=== PATIENT | male | born 1955 | race Caucasian/White ===

== ENCOUNTER 2019-04-02 23:39 | Inpatient (IN) | payer SELFPAY ==
[~2019-04-02] VITALS: Ht 175.3 cm; Wt 93.0 kg
[2019-04-03 01:27] LABS: BASOPHILS 0.2 % (0-2); EOSINOPHILS 3.9 % (0-7); HEMATOCRIT 39.2 % (42.0-54.0); HEMOGLOBIN 13.9 g/dL (13.5-17.5); IMMATURE GRANULOCYTES 0.5 % (0-5); LYMPHOCYTES 33.4 % (15-50); MCH 30.5 pg (26.0-34.0); MCHC 35.5 g/dL (31.0-37.0); MONOCYTES 7.2 % (2-11); NEUTROPHILS 54.8 % (40-80); PLATELET COUNT 164 10x3/uL (130-400); RBC 4.56 10x6/uL (4.20-6.10); RDW 13.6 % (11.5-14.5); WBC 6.4 10x3/uL (4.8-10.8)
[2019-04-03 01:38] LABS: INR 1.08 (0.85-1.17); PROTIME 13.5 SECONDS (11.6-15.0)
[2019-04-03 01:45] LABS: ALBUMIN 2.2 g/dL (3.4-5.0); ALKALINE PHOSPHATASE 88 U/L (46-116); ALT (SGPT) 22 U/L (10-68); BILIRUBIN - TOTAL 0.45 mg/dL (0.2-1.3); CALC OSMOLALITY 293 mosm/kg (275-300); CALCIUM 9.4 mg/dL (8.5-10.1); CARBON DIOXIDE 23.2 mmol/L (21.0-32.0); CHLORIDE - SERUM 105 mmol/L (98-107); GLUCOSE 388 mg/dL (74-106); POTASSIUM - SERUM 5.5 mmol/L (3.5-5.1); PROTEIN - SERUM 6.5 g/dL (6.4-8.2); SODIUM 138 mmol/L (136-145); UREA NITROGEN 18 mg/dL (7-18)
[2019-04-03 01:53] LABS: CREATININE - SERUM 1.5 mg/dL (0.6-1.3); eGFR NON AFRICAN AMERICAN 50 mL/min (90-120)
[2019-04-03 01:57] LABS: UDS - AMPHET POSITIVE QUAL (NEGATIVE); UDS - BARB NEGATIVE QUAL (NEGATIVE); UDS - BENZO NEGATIVE QUAL (NEGATIVE); UDS - COCAINE NEGATIVE QUAL (NEGATIVE); UDS - OPIATE NEGATIVE QUAL (NEGATIVE); UDS - PCP NEGATIVE QUAL (NEGATIVE); UDS - THC NEGATIVE QUAL (NEGATIVE)
[2019-04-03 02:14] LABS: KETONE - SERUM NEGATIVE (NEGATIVE)
[2019-04-03 02:14] LABS: APPEARANCE CLEAR (CLEAR); BILIRUBIN NEGATIVE (NEGATIVE); COLOR STRAW (YELLOW); GLUCOSE 1000 mg/dL (NEGATIVE); KETONE NEGATIVE (NEGATIVE); NITRITE NEGATIVE (NEGATIVE); PROTEIN NEGATIVE (NEGATIVE); UROBILINOGEN NORMAL (NORMAL)
--- NOTE | 2019-04-03 03:11 | NUR ---
RECIEVED TO ROOM 2133 FROM ER VIA STRETCHER. PT A&O. RESPERATIONS EVEN ON AT 2 LITERS VIA NC. IV TO LEFT HAND SL. LOWER LEFT LEG SWOLLEN WITH 2+ PITTING EDEMA, BRUISES AND IS HOT TO THE TOUCH, UNABLE TO PALPATE OR DOPPLER PEDAL PULSE. RIGHT LEG WNL, PEDAL PULSE DOPPLERED AND MARKED WITH INK. HISTORY AND ADMISSION ASSESSMENT COMPLETE. UNALBE TO TO FINISH MED REC, PT IS UNABLE TO NAME OFF HOME MEDS BUT STATED THAT HIS WILL BRING UP A LIST TODAY, WILL PASS THIS INFORMATION OFF IN REPORT TO DAY SHIFT NURSE. PT CURRENTLY DENIES NEEDS, FRESH ICE WATER GIVEN AT PT REQUEST, CL IN REACH, BED LOW, SR UP X2.
[2019-04-03 03:24] VITALS: BMI 30.3
[2019-04-03 04:00] VITALS: BP 127/62
--- NOTE | 2019-04-03 04:48 | NUR ---
PLACED ON TELEMETRY, 94 SR PER MT.
[2019-04-03 08:44] VITALS: BP 126/68
[2019-04-03 12:27] VITALS: BP 120/82
[2019-04-03 12:39] VITALS: Ht 175.3 cm; Wt 93.0 kg
--- NOTE | 2019-04-03 16:16 | MORECARE ---
CASE MANAGEMENT DISCHARGE SUMMARY PATIENT: LOVE JONES UNIT: [id number] ADM DATE: 04/03/19 AGE: 63 : 53 SEX: M ROOM/BED: D.2134 AUTHOR: DENA SULLIVAN PHYSICIAN: REFERRING PHYSICIAN: NILA MONTAÑO MD DATE OF SERVICE: 04/03/19 Discharge Plan Patient Name: LOVE JONES [facility] [facility] 1955 Planned Disposition: Home Anticipated Discharge Date: Discharge Date: Expected LOS: Initial Reviewer: [email or web address] Initial Review Date: 04/03/2019 Generated: 04/03/19 5:16 pm DCPIA - Discharge Planning Initial Assessment Updated by [email or web address]: Saleem Becerril on 04/03/19 4:14 pm * Is the patient Alert and Oriented? Yes * How many steps to enter\exit or inside your home? * PCP MONIE VYAS, [place] * Pharmacy [facility], [place], [place] * Preadmission Environment Home with Family * ADLs Independent * Equipment None * Other Equipment NO MEDICAL EQUIPMENT PROVIDER PREFERENCE * List name and contact numbers for known caregivers / representatives who currently or will assist patient after discharge: GRACIELA JONES, SPOUSE, * Verbal permission to speak to the caregivers and representatives has been obtained from the patient. N/A * Community resources currently utilized None * Please name any agencies selected above. NONE * Additional services required to return to the preadmission environment? No * Can the patient safely return to the preadmission environment? Yes * Has this patient been hospitalized within the prior 30 days at any hospital? No Patient Name: LOVE JONES Page 78078 at 1616 All edits/amendments must be made on the electronic document DICTATION DATE: 04/03/191615 ESOL INSTRUCTOR: KAYLA 04/03/191615 RPT#: [id number] DC DATE: STATUS: ADM IN [facility] [address] [place] [address] END OF REPORT
--- NOTE | 2019-04-03 16:31 | MORECARE ---
CASE MANAGEMENT DISCHARGE SUMMARY PATIENT: LOVE JONES UNIT: [id number] ADM DATE: 04/03/19 AGE: 63 : 51 SEX: M ROOM/BED: D.5663 AUTHOR: DENA SULLIVAN PHYSICIAN: REFERRING PHYSICIAN: NILA MONTAÑO MD DATE OF SERVICE: 04/03/19 Discharge Plan Patient Name: LOVE JONES Facility: [facility]:[place] : 1955 Planned Disposition: Home Anticipated Discharge Date: Discharge Date: Expected LOS: Initial Reviewer: [email or web address] Initial Review Date: 04/03/2019 Generated: 04/03/19 5:30 pm Comments DCP- Discharge Planning Updated by [email or web address]: Saleem Becerril on 04/03/19 3:[address] Patient Name: LOVE JONES Admission Status: ER Accout number: [id number] Admission Date: 04-03-2019 : 1955 Admission Diagnosis: Attending: HOLLAND MONTAÑO Current LOS: 1 Anticipated DC Date: Planned Disposition: Home Primary Insurance: UNINSURED DISCOUNT PLAN Discharge Planning Comments: CM RECEIVED ORDER FOR PT CANNOT AFFORD MEDICATIONS. CM MET WITH PT IN ROOM TO DISCUSS DISCHARGE PLANNING AND NEEDS. PT REPORTS LIVING AT HOME INDEPENDENTLY WITH HIS . PT REPORTS HAVING BEEN RELEASED FROM ASSISTED ON January AFTER 24 MONTHS DUE TO "SLINGING DRUGS". PT HAS NO MEDICAL EQUIPMENT AND NO OUTSIDE SERVICES ASSISTING IN THE HOME. CM DISCUSSED AVAILABILITY OF HOME HEALTH, REHAB SERVICES AND MEDICAL EQUIPMENT. PT DENIES DISCHARGE NEEDS, REPORTS HIS WILL PICK HIM UP FOR DISCHARGE HOME. CM DISCUSSED INABILITY TO AFFORD DRUGS. PT STATES HE CAN AFFORD HIS MEDICATIONS. 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 PT RECEIVED HIS CHECK AFTER RELEASE FROM ASSISTED AND OPENED UP A BANK ACCOUNT. PT HAD A PREVIOUS ACCOUNT THAT WAS OVERDRAFTED AND THE BACK HELD HIS MONEY. THEY HAVE SINCE RESOLVED THE ISSUE AND HAVE MAILED HIM HIS CHECK BUT HE WILL HAVE TO OPEN ANOTHER BANK ACCOUNT. PT REPORTS HE IS RECEIVING HIS NEXT DISABILITY CHECK NEXT WEEK. PT REPORTS MOST OF HIS MEDICATIONS ARE $4 AND METFORMIN IS THE MOST EXPENSIVE AT $60. PT REPORTS HAVING MEDICARE AND INSURANCE TO ASSIST IN GETTING HIS MEDICATIONS FROM HIS PRIMARY CARE DOCTOR, DR. FARIAS, IN [place], [place]. PT REPORTS BEING ON PAROLE AND HE HAS NOT CONTACTED HIS DATA STORAGE SPECIALIST TO LET HIM KNOW THAT HE IS IN THE HOSPITAL; PT IS NOT SURE IF HE HAS MISSED HIS TELEPHONE APPPOINTMENT TO CALL IN AND DOES NOT KNOW IF HE HAS RESTRICTIONS ON OUT OF STATE TRAVEL. CM ADVISED PT TO CONTACT HIS DATA STORAGE SPECIALIST TODAY AND TO MAKE SURE HE SHOWS HIS HOSPITAL DISCHARGE PAPERS TO HIS DATA STORAGE SPECIALIST AFTER HOSPTIAL DISCHARGE. CM DISCUSSED DRUG USE, PT DENIES ADDICTION TO DRUGS AND DENIES NEED FOR RESOURCE INFORMATION. CM ENCOURAGED PT TO INFORM HIS DATA STORAGE SPECIALIST OF ANY AND ALL USE OF ILLICIT DRUGS UPON HIS NEXT CALL TO [place] OFFICE AND TO REQUEST ASSISTANCE OF DATA STORAGE SPECIALIST FOR RECOVERY SUPPORT PROGRAMS IN PT'S HOME AREA, IF NEEDED. PT REPORTS UNDERSTANDING, DENIES DISCHARGE NEEDS. PT PLANS TO DISCHARGE HOME WITH , REPORTS ABILITY TO AFFORD MEDICATIONS, REPORTS HAVING HEALTH AND PRESCRIPTION DRUG COVERAGES. CM TO FOLLOW AND ASSIST IF NEEDED. Acute Specialist: Saleem Becerril DCA - Discharge Planning Initial Assessment Updated by [email or web address]: Saleem Becerril on 04/03/19 4:14 pm * Is the patient Alert and Oriented? Yes * How many steps to enter\\exit or inside your home? * PCP [place]ELMO [place] * Pharmacy [facility], [place], [place] * Preadmission Environment Home with Family * ADLs Independent * Equipment None * Other Equipment NO MEDICAL EQUIPMENT PROVIDER PREFERENCE * List name and contact numbers for known caregivers / representatives who currently or will assist patient after discharge: GRACIELA JONES, SPOUSE, * Verbal permission to speak to the caregivers and representatives has been obtained from the patient. N/A * Community resources currently utilized None * Please name any agencies selected above. NONE * Additional services required to return to the preadmission environment? No * Can the patient safely return to the preadmission environment? Yes * Has this patient been hospitalized within the prior 30 days at any hospital? No Last DP export: 04/03/19 3:16 p Patient Name: LOVE JONES Page [phone] at 1631 All edits/amendments must be made on the electronic document DICTATION DATE: 04/03/19 1630 TRIM SETTER: KAYLA 04/03/19 1630 RPT#: [id number] [place] DATE: STATUS: ADM IN [facility] [address] [place] [address] END OF REPORT
--- NOTE | 2019-04-03 19:15 | NUR ---
PT RESTING IN BED. LEFT THUMB IV UNHOOKED FROM NS AND IV WRAPPED WITH A GLOVE FOR PT TO GET INTO SHOWER. PT IS AAO. LEFT LEG HAS SWELLING NOTED. PT STATES SWELLING HAS DECREASED. PT HAS NO S/S OF DISTRESS. BED LOW AND CALL LIGHT IN REACH. WILL CPOC
[2019-04-03 20:00] VITALS: BP 131/80
--- NOTE | 2019-04-03 21:16 | NUR ---
PT EATING GRAM CRACKERS PNT BUTTER AND JELLO. SIPPING ON WATER. FSBS IS 264 10 UNITS OF HUMALOG GIVEN ORDERED. WILL CPOC
[2019-04-04] VITALS: BP 109/50
--- NOTE | 2019-04-04 03:22 | NUR ---
PT CALLED COMPLAINING OF PAIN. NO PAIN MEDICATION AVALIBLE. PAGED LUIS MIGUEL LAMAR
--- NOTE | 2019-04-04 03:24 | NUR ---
OBTAINED AN ORDER FOR 1 MG OF MORPHINE IV Q6H PRN FOR PAIN. READ BACK ORDER TO VERIFY.
--- NOTE | 2019-04-04 03:49 | NUR ---
LOVENOX GIVEN. PT EDUCATED ON LOVENOX AND VERBALIZED UNDERSTANDING. LEFT THUMB IV NOT FLUSHING. REDRESSED IV AND IT IS NOW PATENT. NS INFUSING AND MORPHINE GIVEN. PT DENIES ANY OTHER NEEDS. PT VERBALIZED UNDERSTANDING TO CALL FOR ASSIST WHEN AMBULATING DUE TO MORPHINE. ALARM ON AND ACTIVE. WILL CPOC
[2019-04-04 04:00] VITALS: BP 128/73
--- NOTE | 2019-04-04 06:27 | NUR ---
PT ATE CANDY THIS MORNING. FSBS IS 409 TREATED WITH 20 UNITS ORDERED.
[2019-04-04 07:04] LABS: BASOPHILS 0.3 % (0-2); EOSINOPHILS 2.8 % (0-7); HEMATOCRIT 37.8 % (42.0-54.0); IMMATURE GRANULOCYTES 0.3 % (0-5); LYMPHOCYTES 32.7 % (15-50); MCH 30.6 pg (26.0-34.0); MCHC 34.4 g/dL (31.0-37.0); MEAN PLATELET VOLUME 9.4 fL (7.4-10.4); MONOCYTES 7.2 % (2-11); NEUTROPHILS 56.7 % (40-80); RBC 4.25 10x6/uL (4.20-6.10); RDW 13.6 % (11.5-14.5); WBC 5.7 10x3/uL (4.8-10.8)
--- NOTE | 2019-04-04 07:16 | NUR ---
INITIAL ROUNDING, WHITE BOARD UPDATED. PATIENT IS SLEEPING, SNORING, ON HIS RIGHT SIDE, LIGHTS OFF, CALL LIGHT IN REACH.
[2019-04-04 07:20] LABS: MCV 88.9 fL (80.0-100.0); PLATELET COUNT 206 10x3/uL (130-400)
[2019-04-04 07:27] LABS: ALBUMIN 2.2 g/dL (3.4-5.0); BILIRUBIN - TOTAL 0.38 mg/dL (0.2-1.3); CALCIUM 8.3 mg/dL (8.5-10.1); CARBON DIOXIDE 25.7 mmol/L (21.0-32.0); CREATININE - SERUM 1.3 mg/dL (0.6-1.3); PHOSPHOROUS 3.4 mg/dL (2.5-4.9); PROTEIN - SERUM 5.8 g/dL (6.4-8.2)
[2019-04-04 07:44] LABS: POTASSIUM - SERUM 3.7 mmol/L (3.5-5.1)
[2019-04-04 11:40] VITALS: BP 133/64
--- NOTE | 2019-04-04 12:50 | NUR ---
THE PATIENT REQUESTED PAIN MEDICATION AFTER BEING WOKE FOR THE PRN MAG. THE PATIENT WAS SLEEPING/SNORING WHEN THE MEDICATION WAS TO BE GIVEN, DID NOT WAKE THE PATIENT TO ADMINISTER THE PAIN MED. WILL CONT TO MONITOR
--- NOTE | 2019-04-04 19:15 | NUR ---
PT LAYING ON RIGHT SIDE WITH EYES CLOSED. RESP EVEN AND UNLABORED. LEFT THUMB WITH NS INFUSING ORDERED. PT HAS NO S/S OF DISTRESS. BED LOW AND CALL LIGHT IN REACH. NAME AND DATE PLACED ON BOARD. WILL CPOC
[2019-04-04 20:00] VITALS: BP 128/76
--- NOTE | 2019-04-04 21:04 | NUR ---
NIGHT MEDICATIONS GIVEN, ELIQUIS EDUCATION GIVEN. PT VERBALIZED UNDERSTANDING. FSBS IS 238 8 UNITS GIVEN. PT CALLED SO NURSE COULD ASK FOR PHYSICAL COPY OF MED REC OR VERBAL INFO FOR MED REC. STATES WILL BRING TOMORROW. PT LEFT THUMB WITH NS INFUSING. PT GIVEN MAG PER PROTOCOL. WILL PLACE ORDER FOR REDRAW. NO OTHER NEEDS. SNACK OFFERED. WILL CPOC
--- NOTE | 2019-04-04 21:49 | NUR ---
PT COMPLAINS OF PAIN. MORPHINE GIVEN ORDERED. PT DENIES ANY OTHER NEEDS. WILL CPOC
--- NOTE | 2019-04-05 01:17 | NUR ---
PT LAYING ON RIGHT SIDE. EYES CLOSED. RESP EVEN AND UNLABORED. 2L O2 NC. NO S/S OF DISTRESS. BED LOW AND CALL LIGHT IN REACH. EMPTIED 125CC OF YELLOW URINE FROM URINAL. WILL CPOC
--- NOTE | 2019-04-05 03:20 | NUR ---
PT MAG IS 1.1 TREATING PER ELECT. PROTOCOL. PT VERBALIZED UNDERSTANDING. O2 92% PT PLACED 2L ON AND DENIES ANY NEEDS. WILL CPOC
[2019-04-05 04:00] VITALS: BP 152/95
--- NOTE | 2019-04-05 04:04 | NUR ---
SECOND BAG STARTED FOR MAG REPLACEMENT. WILL CONTINUE TO FOLLOW ELECT. PROTOCOL
--- NOTE | 2019-04-05 05:12 | NUR ---
3RD BAG OF MAG STARTED PER PROTOCOL. LAB CAME BY ROOM AND NURSE ASKED IF ALL MORNING LABS CAN BE DRAWN AFTER BREAKFAST SINCE PT IS A HARD STICK AND NURSE WILL BE PUTTING IN A REDRAW FOR [phone] CIRA FROM LAB IN AGREEMENT AND PUT A NOTE ON LABELS. WILL PASS IN REPORT.
--- NOTE | 2019-04-05 05:47 | NUR ---
FOURTH BAG OF MAG STARTED PER PROTOCOL. MORNING PROTONIX GIVEN. PT HAS NO S/S OF DISTRESS. BED LOW AND CALL LIGHT IN REACH. WILL CPOC
--- NOTE | 2019-04-05 05:57 | NUR ---
PT FSBS IS 236 8 UNITS GIVEN ORDERED. PT DENIES ANY NEEDS. WILL CPOC
--- NOTE | 2019-04-05 06:02 | NUR ---
PT HAS A SNACK AVALIBLE POST 8 UNIT INSULIN
--- NOTE | 2019-04-05 07:14 | NUR ---
ROUNDING DONE WITH PATIENT LAYING ON RIGHT SIDE, VOICING NO NEEDS BUT BEING TIRED. ON EP, LABS WERE COVERED LAST SHIFT WITH RE-DRAW OF MAG AT 0800. LEFT THUMB PIV SEEN WITH NS INFUSING AT 20 CC/HR. ON 2L PER NC. ON HEART MONITOR SHOWING SR, HR 83.
[2019-04-05 08:37] VITALS: BP 160/87
[2019-04-05 09:48] LABS: BASOPHILS 0.2 % (0-2); EOSINOPHILS 2.9 % (0-7); HEMATOCRIT 37.4 % (42.0-54.0); HEMOGLOBIN 12.8 g/dL (13.5-17.5); IMMATURE GRANULOCYTES 0.5 % (0-5); LYMPHOCYTES 18.9 % (15-50); MCH 30.4 pg (26.0-34.0); MCHC 34.2 g/dL (31.0-37.0); MCV 88.8 fL (80.0-100.0); MEAN PLATELET VOLUME 9.1 fL (7.4-10.4); MONOCYTES 6.7 % (2-11); NEUTROPHILS 70.8 % (40-80); PLATELET COUNT 205 10x3/uL (130-400); RBC 4.21 10x6/uL (4.20-6.10); RDW 13.6 % (11.5-14.5); WBC 5.8 10x3/uL (4.8-10.8)
[2019-04-05 10:04] LABS: ALBUMIN 2.1 g/dL (3.4-5.0); ANION GAP 11.2 mmol/L (8-16); BILIRUBIN - TOTAL 0.51 mg/dL (0.2-1.3); CALCIUM 8.2 mg/dL (8.5-10.1); CARBON DIOXIDE 24.3 mmol/L (21.0-32.0); CREATININE - SERUM 1.3 mg/dL (0.6-1.3); MAGNESIUM - SERUM 1.9 mg/dL (1.8-2.4); PHOSPHOROUS 2.5 mg/dL (2.5-4.9); POTASSIUM - SERUM 3.5 mmol/L (3.5-5.1)
--- NOTE | 2019-04-05 10:10 | NUR ---
EP RESULTS IN WITH K+ 3.5, MAG 1.9, AND PHOS2.5 WILL COVER NEEDED PER ORAL SUPPLEMENTS.
--- NOTE | 2019-04-05 10:15 | NUR ---
ORAL POTASSIUM GIVEN.
--- NOTE | 2019-04-05 10:32 | EC ---
PATIENT:LOVE JONES DATE OF SERVICE: 04/03/19 SEX: M MEDICAL RECORD: [id number] DATE OF : [birth year] LOCATION:D.M2 D.213 AGE OF PATIENT: 63 ADMISSION DATE: 04/03/19 REFERRING PHYSICIAN: INTERPRETING PHYSICIAN: SHAGGY HILL MD ECHOCARDIOGRAM REPORT ECHO CHARGES 4 ECHO COMPLETE Date: 04/04/19 CLINICAL DIAGNOSIS: CHF/BILATERAL PE'S,IV DRUG USE ECHOCARDIOGRAPHIC MEASUREMENTS (adult normal given) AC root (d.<3.7cm) 3.5 cm LV Septum d (<1.2 cm> 1.5 cm Valve Excursion 1.3 cm LV Septum (systole) 1.7 cm Left Atria (s.<4.0cm> 4.2 cm LVPW d(<1.2cm) 1.6 cm RV (d.<2.3cm) 3.3 cm LVPW (sytole) 1.9 cm LV diastole(<5.6CM) 4.5 cm MV E-F(>70mm/sec) cm LV systole 3.2 cm LVOT Diameter 2.3 cm MV exc.(>10mm) 2.3 cm Est.ejection fraction (50-75%) % DOPPLER: LVIT cm/sec A 107 cm/sec E 78.0 cm/sec LA cm/sec RVSP 37 mmHg LVOT 96 cm/sec AOP1/2T m/s Asc. Ao 147 cm/sec RVOT 71 cm/sec RA cm/sec PA 111 cm/sec AV Gradient Peak 8.66 mmHg AV Mean 4.48 mmHg AV Area 2.7 cm MV Gradient Peak 6.19 mmHg MV Mean 2.53 mmHg MV Area cm COMMENTS: Surgical First Assistant: 2 SAHIL HANSON Tea Tree Farmer: 3 Dr. Nolan TAPE# PACS Pericardial Effusion N DATE OF SERVICE: Adequate 2-D echo, color-flow and spectral Doppler, and M-mode. LVH is present. LV internal dimensions are normal. Wall motion is normal. EF is greater than or equal to 55%. Aortic valve is tricuspid. No evidence of stenosis by Doppler interrogation. Left atrium is mildly dilated at 4.2 cm. Mitral valve shows no prolapse. Trace MR. Right-sided chambers are grossly normal. Trace TR. No evidence of vegetation in all 4 cardiac valves. ECHOCARDIOGRAM REPORT [id number] LOVE JONES TRANSINT:[id number] Voice Confirmation ID: [id number] DOCUMENT ID: [id number] SHAGGY HILL MD at 1032 CC: [id number] DICTATION DATE: 04/04/19 1349 FARE COLLECTOR: 04/04/19 1634 ADM IN [facility] [address] [place] [address]
--- NOTE | 2019-04-05 11:31 | MORECARE ---
CASE MANAGEMENT DISCHARGE SUMMARY PATIENT: LOVE JONES UNIT: [id number] ADM DATE: 04/03/19 AGE: 63 : 51 SEX: M ROOM/BED: D.9445 AUTHOR: DENA SULLIVAN PHYSICIAN: REFERRING PHYSICIAN: NILA MONTAÑO MD DATE OF SERVICE: 04/05/19 Discharge Plan Patient Name: LOVE JONES Facility: [facility]:[place] : 1955 Planned Disposition: Home Anticipated Discharge Date: 04/05/19 Discharge Date: Expected LOS: 2 Initial Reviewer: [email or web address] Initial Review Date: 04/03/2019 Generated: 04/05/19 12:31 pm Comments DCP- Discharge Planning Updated by [email or web address]: Saleem Becerril on 04/05/19 10:[address] Patient Name: LOVE JONES Encounter No: [id number] : 1955 Primary Insurance: UNINSURED DISCOUNT PLAN Anticipated DC Date: 04-05-2019 Planned Disposition: Home DCP follow-up note: CM REVIEWED CHART, PT STARTED ON ELIQUIS. CM MET WITH PT AND PROVIDED PT WITH ELIQUIS 30 DAY FREE PRESCRIPTION CARD AND $10 COPAY CARD. PT DENIES FURHTER DISCHARGE NEEDS, REPORTS PLAN FOR HIS TO PICK HIM UP AT DISCHARGE. CM TO CONTINUE TO FOLLOW AND ASSIST IF NEEDED. Saleem Becerril CASE MANAGEMENT DCP- Discharge Planning Updated by [email or web address]: Saleem Becerril on 04/03/19 3:[address] Patient Name: LOVE JONES Admission Status: ER Accout number: [id number] Admission Date: 04-03-2019 : 1955 Admission Diagnosis: Attending: HOLLAND MONTAÑO Current LOS: 1 Anticipated DC Date: Planned Disposition: Home Primary Insurance: UNINSURED DISCOUNT PLAN Discharge Planning Comments: CM RECEIVED ORDER FOR PT CANNOT AFFORD MEDICATIONS. CM MET WITH PT IN ROOM TO DISCUSS DISCHARGE PLANNING AND NEEDS. PT REPORTS LIVING AT HOME INDEPENDENTLY WITH HIS . PT REPORTS HAVING BEEN RELEASED FROM NURSING HOME ON January AFTER 24 MONTHS DUE TO "SLINGING DRUGS". PT HAS NO MEDICAL EQUIPMENT AND NO OUTSIDE SERVICES ASSISTING IN THE HOME. CM DISCUSSED AVAILABILITY OF HOME HEALTH, REHAB SERVICES AND MEDICAL EQUIPMENT. PT DENIES DISCHARGE NEEDS, REPORTS HIS WILL PICK HIM UP FOR DISCHARGE HOME. CM DISCUSSED INABILITY TO AFFORD DRUGS. PT STATES HE CAN AFFORD HIS MEDICATIONS. 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 PT RECEIVED HIS CHECK AFTER RELEASE FROM NURSING HOME AND OPENED UP A BANK ACCOUNT. PT HAD A PREVIOUS ACCOUNT THAT WAS OVERDRAFTED AND THE BACK HELD HIS MONEY. THEY HAVE SINCE RESOLVED THE ISSUE AND HAVE MAILED HIM HIS CHECK BUT HE WILL HAVE TO OPEN ANOTHER BANK ACCOUNT. PT REPORTS HE IS RECEIVING HIS NEXT DISABILITY CHECK NEXT WEEK. PT REPORTS MOST OF HIS MEDICATIONS ARE $4 AND METFORMIN IS THE MOST EXPENSIVE AT $60. PT REPORTS HAVING MEDICARE AND INSURANCE TO ASSIST IN GETTING HIS MEDICATIONS FROM HIS PRIMARY CARE DOCTOR, DR. FARIAS, IN [place], [place]. PT REPORTS BEING ON PAROLE AND HE HAS NOT CONTACTED HIS CADMIUM LIQUOR MAKER TO LET HIM KNOW THAT HE IS IN THE HOSPITAL; PT IS NOT SURE IF HE HAS MISSED HIS TELEPHONE APPPOINTMENT TO CALL IN AND DOES NOT KNOW IF HE HAS RESTRICTIONS ON OUT OF STATE TRAVEL. CM ADVISED PT TO CONTACT HIS CADMIUM LIQUOR MAKER TODAY AND TO MAKE SURE HE SHOWS HIS HOSPITAL DISCHARGE PAPERS TO HIS CADMIUM LIQUOR MAKER AFTER HOSPTIAL DISCHARGE. CM DISCUSSED DRUG USE, PT DENIES ADDICTION TO DRUGS AND DENIES NEED FOR RESOURCE INFORMATION. CM ENCOURAGED PT TO INFORM HIS CADMIUM LIQUOR MAKER OF ANY AND ALL USE OF ILLICIT DRUGS UPON HIS NEXT CALL TO [place] OFFICE AND TO REQUEST ASSISTANCE OF CADMIUM LIQUOR MAKER FOR RECOVERY SUPPORT PROGRAMS IN PT'S HOME AREA, IF NEEDED. PT REPORTS UNDERSTANDING, DENIES DISCHARGE NEEDS. PT PLANS TO DISCHARGE HOME WITH , REPORTS ABILITY TO AFFORD MEDICATIONS, REPORTS HAVING HEALTH AND PRESCRIPTION DRUG COVERAGES. CM TO FOLLOW AND ASSIST IF NEEDED. Nurse Aide: Saleem Becerril DCA - Discharge Planning Initial Assessment Updated by [email or web address]: Saleem Becerril on 04/03/19 4:14 pm * Is the patient Alert and Oriented? Yes * How many steps to enter\\exit or inside your home? * PCP DR. FARIAS, MONIE, [place] * Pharmacy [facility], [place], [place] * Preadmission Environment Home with Family * ADLs Independent * Equipment None * Other Equipment NO MEDICAL EQUIPMENT PROVIDER PREFERENCE * List name and contact numbers for known caregivers / representatives who currently or will assist patient after discharge: GRACIELA JONES, SPOUSE, * Verbal permission to speak to the caregivers and representatives has been obtained from the patient. N/A * Community resources currently utilized None * Please name any agencies selected above. NONE * Additional services required to return to the preadmission environment? No * Can the patient safely return to the preadmission environment? Yes * Has this patient been hospitalized within the prior 30 days at any hospital? No Last DP export: 04/03/19 3:31 p Patient Name: LOVE JONES Page [id number] at 1131 All edits/amendments must be made on the electronic document DICTATION DATE: 04/05/19 1131 TOLL MECHANIC: DM 04/05/19 1131 RPT#: [id number] [place] DATE: STATUS: ADM IN [facility] [address] [place] [address] END OF REPORT
--- NOTE | 2019-04-05 12:18 | NUR ---
FSBS 342, COVERED WITH 12 U HUMALOG TO RIGHT ARM. PATIENT STATES THAT HE JUST CAME FROM RESTROOM FROM HAVING A BOWEL MOVEMENT.
[2019-04-05 12:30] VITALS: BP 137/96
--- NOTE | 2019-04-05 13:32 | NUR ---
DR ISLASMN HERE WITH NEW ORDERS.
--- NOTE | 2019-04-05 15:35 | NUR ---
RESTING ON RIGHT SIDE WITH EYES CLOSED, RESP ARE EVEN. APPEARS PAINFREE AT THIS PRESENT TIME.
[2019-04-05 16:38] VITALS: BP 150/75
--- NOTE | 2019-04-05 17:04 | MORECARE ---
CASE MANAGEMENT DISCHARGE SUMMARY PATIENT: LOVE JONES UNIT: [id number] ADM DATE: 04/03/19 AGE: 63 : 51 SEX: M ROOM/BED: D.2134 AUTHOR: DENA SULLIVAN PHYSICIAN: REFERRING PHYSICIAN: NILA MONTAÑO MD DATE OF SERVICE: 04/05/19 Discharge Plan Patient Name: LOVE JONES Facility: [facility]:[place] : 1955 Planned Disposition: Home Anticipated Discharge Date: 04/05/19 Discharge Date: Expected LOS: 2 Initial Reviewer: [email or web address] Initial Review Date: 04/03/2019 Generated: 04/05/19 6:03 pm Comments DCP- Discharge Planning Updated by [email or web address]: Saleem Becerril on 04/05/19 3:[address] Patient Name: LOVE JONES Encounter No: [id number] : 1955 Primary Insurance: UNINSURED DISCOUNT PLAN Anticipated DC Date: 04-05-2019 Planned Disposition: Home DCP follow-up note: CM RECEIVED ORDER FOR TRANSPORTATION. CM SPOKE TO CM PERSONNEL REPRESENTATIVE, DISCUSSED SITUATION. [employer] TRANSPORT PAID FOR BY CASE MANAGEMENT IS NOT FEASIBLE. CM SPOKE TO PT IN ROOM REGARDING DISCHARGE PLAN AND TRANSPORTATION. PT REPORTS HE HAS CALLED HIS AND DAUGHTER, THEY SHOULD BE ON THE WAY IN THE MORNING TO PICK HIM UP; PT REPORTS HIS CAR GETS 26 MILES PER [place] AND THEY CAN COME PICK HIM UP AND GET BACK HOME ON ONE TANK OF GAS. PT HAS THE ELIQUIS ASSISTANCE CARDS AND DENIES FURTHER DISCHARGE NEEDS. PT'S SPOUSE TO CORPORATE MEETING PLANNER PT FOR DISCHARGE HOME TOMORROW, 04-06-19. Saleem Becerril CASE MANAGEMENT DCP- Discharge Planning Updated by [id number]: Saleem Becerril on 04/05/19 10:[address] Patient Name: LOVE JONES Encounter No: [id number] : 1955 Primary Insurance: UNINSURED DISCOUNT PLAN Anticipated DC Date: 04-05-2019 Planned Disposition: Home DCP follow-up note: CM REVIEWED CHART, PT STARTED ON ELIQUIS. CM MET WITH PT AND PROVIDED PT WITH ELIQUIS 30 DAY FREE PRESCRIPTION CARD AND $10 COPAY CARD. PT DENIES FURHTER DISCHARGE NEEDS, REPORTS PLAN FOR HIS TO PICK HIM UP AT DISCHARGE. CM TO CONTINUE TO FOLLOW AND ASSIST IF NEEDED. Saleem Becerril, CASE MANAGEMENT DCP- Discharge Planning Updated by [id number]: Saleem Michelwell on 04/03/19 3:[address] Patient Name: LOVE JONES Admission Status: ER Accout number: [id number] Admission Date: 04-03-2019 : 1955 Admission Diagnosis: Attending: HOLLAND MONTAÑO Current LOS: 1 Anticipated DC Date: Planned Disposition: Home Primary Insurance: UNINSURED DISCOUNT PLAN Discharge Planning Comments: CM RECEIVED ORDER FOR PT CANNOT AFFORD MEDICATIONS. CM MET WITH PT IN ROOM TO DISCUSS DISCHARGE PLANNING AND NEEDS. PT REPORTS LIVING AT HOME INDEPENDENTLY WITH HIS . PT REPORTS HAVING BEEN RELEASED FROM [facility]ARE [facility] ON January AFTER 24 MONTHS DUE TO "SLINGING DRUGS". PT HAS NO MEDICAL EQUIPMENT AND NO OUTSIDE SERVICES ASSISTING IN THE HOME. CM DISCUSSED AVAILABILITY OF HOME HEALTH, REHAB SERVICES AND MEDICAL EQUIPMENT. PT DENIES DISCHARGE NEEDS, REPORTS HIS WILL PICK HIM UP FOR DISCHARGE HOME. CM DISCUSSED INABILITY TO AFFORD DRUGS. PT STATES HE CAN AFFORD HIS MEDICATIONS. PT STATES HE [place]. PT RECEIVED HIS CHECK AFTER RELEASE FROM [facility] AND OPENED UP A BANK ACCOUNT. PT HAD A PREVIOUS ACCOUNT THAT WAS OVERDRAFTED AND THE BACK HELD HIS MONEY. THEY HAVE SINCE RESOLVED THE ISSUE AND HAVE MAILED HIM HIS CHECK BUT HE WILL HAVE TO OPEN ANOTHER BANK ACCOUNT. PT REPORTS HE IS RECEIVING HIS NEXT DISABILITY CHECK NEXT WEEK. PT REPORTS MOST OF HIS MEDICATIONS ARE $4 AND METFORMIN IS THE MOST EXPENSIVE AT $60. PT REPORTS HAVING MEDICARE AND INSURANCE TO ASSIST IN GETTING HIS MEDICATIONS FROM HIS PRIMARY CARE DOCTOR, DR. FARIAS, IN [place], [place]. PT REPORTS BEING ON [place] AND HE HAS NOT CONTACTED HIS NURSING ASSOCIATE TO LET HIM KNOW THAT HE IS IN THE HOSPITAL; PT IS NOT SURE IF HE HAS MISSED HIS TELEPHONE APPPOINTMENT TO CALL IN AND DOES NOT KNOW IF HE HAS RESTRICTIONS ON OUT OF STATE TRAVEL. CM ADVISED PT TO CONTACT HIS NURSING ASSOCIATE TODAY AND TO MAKE SURE HE SHOWS HIS HOSPITAL DISCHARGE PAPERS TO HIS NURSING ASSOCIATE AFTER HOSPTIAL DISCHARGE. CM DISCUSSED DRUG USE, PT DENIES ADDICTION TO DRUGS AND DENIES NEED FOR RESOURCE INFORMATION. CM ENCOURAGED PT TO INFORM HIS NURSING ASSOCIATE OF ANY AND ALL USE OF ILLICIT DRUGS UPON HIS NEXT CALL TO [place] OFFICE AND TO REQUEST ASSISTANCE OF NURSING ASSOCIATE FOR RECOVERY SUPPORT PROGRAMS IN PT'S HOME AREA, IF NEEDED. PT REPORTS UNDERSTANDING, DENIES DISCHARGE NEEDS. PT PLANS TO DISCHARGE HOME WITH , REPORTS ABILITY TO AFFORD MEDICATIONS, REPORTS HAVING HEALTH AND PRESCRIPTION DRUG COVERAGES. CM TO FOLLOW AND ASSIST IF NEEDED. Shop Superintendent: Saleem Becerril DCPIA - Discharge Planning Initial Assessment Updated by [id number]: Saleem Becerril on 04/03/19 4:14 pm * Is the patient Alert and Oriented? Yes * How many steps to enter\\exit or inside your home? * PCP [facility], [place] * Pharmacy [facility], [place], [place] * Preadmission Environment Home with Family * ADLs Independent * Equipment None * Other Equipment NO MEDICAL EQUIPMENT PROVIDER PREFERENCE * List name and contact numbers for known caregivers / representatives who currently or will assist patient after discharge: GRACIELA JONES, SPOUSE, * Verbal permission to speak to the caregivers and representatives has been obtained from the patient. N/A * Community resources currently utilized None * Please name any agencies selected above. NONE * Additional services required to return to the preadmission environment? No * Can the patient safely return to the preadmission environment? Yes * Has this patient been hospitalized within the prior 30 days at any hospital? No Last DP export: 04/05/19 10:31 a Patient Name: LOVE JONES Page 08954 at 1704 All edits/amendments must be made on the electronic document DICTATION DATE: 04/05/191702 BEADER TENDER: KAYLA 04/05/191702 RPT#: [id number] MI DATE: STATUS: ADM IN [facility] [address] [place] [address] END OF REPORT
--- NOTE | 2019-04-05 19:44 | NUR ---
EVENING ROUNDS COMPLETED. REPORT RECEIVED. PT SITTING UP IN BED WITH EYES OPEN. RR EVEN AND UNLABORED. BED IN LOW POSITION. NO S/S OF DISTRESS NOTED. INTRODUCED SELF TO PT. EMPTIED 200 MLS LIGHT YELLOW OUTPUT FROM URINAL. PT DENIUES FURTHER NEEDS AT THIS TIME. CALL LIGHT IN REACH. WILL CTM.
[2019-04-05 20:00] VITALS: BP 123/77
--- NOTE | 2019-04-05 21:08 | NUR ---
275 BLOOD SUGAR TREATED ORDERED PER SLIDING SCALE. ADMINISTERED ORDERED ANALGESIC FOR PT COMPLAINTS OF PAIN IN LEFT FOOT. PT STATES PAIN OF A 7 ON A SCALE OF 0-10.
[2019-04-06] VITALS: BP 163/69
--- NOTE | 2019-04-06 02:21 | NUR ---
ADMINISTERED ORDERED ANALGESIC FOR PT COMPLAINTS OF PAIN IN LEFT LOWER EXTREMITY, PT STATES PAIN OF A 7 ON A SCALE OF 0-10.
[2019-04-06 04:00] VITALS: BP 145/92
--- NOTE | 2019-04-06 04:34 | NUR ---
I have reviewed this patient and I concur with the Shift Assessment completed by the Licensed Practical Nurse today this shift.
[2019-04-06 05:15] LABS: BASOPHILS 0.3 % (0-2); HEMATOCRIT 39.2 % (42.0-54.0); HEMOGLOBIN 13.2 g/dL (13.5-17.5); IMMATURE GRANULOCYTES 0.7 % (0-5); LYMPHOCYTES 24.6 % (15-50); MCH 30.3 pg (26.0-34.0); MCHC 33.7 g/dL (31.0-37.0); MCV 90.1 fL (80.0-100.0); MEAN PLATELET VOLUME 9.6 fL (7.4-10.4); MONOCYTES 8.5 % (2-11); NEUTROPHILS 61.9 % (40-80); PLATELET COUNT 218 10x3/uL (130-400); RBC 4.35 10x6/uL (4.20-6.10); RDW 13.4 % (11.5-14.5)
[2019-04-06 05:30] LABS: ALBUMIN 2.2 g/dL (3.4-5.0); ANION GAP 12.1 mmol/L (8-16); BILIRUBIN - TOTAL 0.53 mg/dL (0.2-1.3); CALCIUM 8.3 mg/dL (8.5-10.1); CARBON DIOXIDE 25.1 mmol/L (21.0-32.0); CREATININE - SERUM 1.1 mg/dL (0.6-1.3); POTASSIUM - SERUM 4.2 mmol/L (3.5-5.1)
--- NOTE | 2019-04-06 05:33 | NUR ---
MORNING MEDICATION ADMINISTERED WITHOUT ISSUE. PT RESTING COMFORTABLY IN BED WITH EYES OPEN, RR EVEN AND UNLABORED. NO S/S OF DISTRESS NOTED. CALL LIGHT IN REACH. 81 NORMAL SINUS ON TELEMETRY. WILL CTM.
[2019-04-06 05:43] LABS: MAGNESIUM - SERUM 1.3 mg/dL (1.8-2.4)
--- NOTE | 2019-04-06 05:59 | NUR ---
1.3 SERUM MAGNESIUM TREATED PER ELECTROLYTE REPLACEMENT PROTOCOL. 167 BLOOD SUGAR TREATED ORDERED PER SLIDING SCALE.
--- NOTE | 2019-04-06 07:13 | NUR ---
BEDSIDE SHIFT REPORT COMPLETE, WHITE BOARD UPDATED, THE PATIENT IS SLEEPING/SNORING ON HIS RIGHT SIDE, LIGHTS OFF, CALL LIGHT IN REACH. DID NOT WAKE DURING ROUNDING.
[2019-04-06 08:34] VITALS: BP 132/82
--- NOTE | 2019-04-06 08:46 | NUR ---
CALLED [phone] AND SPOKE WITH MARIUSZ TREVIZO. HERIBERTO ATKINSON. REPORTED TO HER THAT THE PATIENT HAS BEEN TREATED, PER PROTOCOL, WITH 400 MG (1ST OF 4) PO AND WAS DUE THE SECOND DOSE AT 1000. JOSELINE GAVE VERBAL ORDER TO STOP THE PO AND CHECK THE MAG LEVEL AFTER THE 1ST BAG OF MAG IS INFUSED.
[2019-04-06] MEDS ORDERED: ELIQUIS5 MG PO (11:11)
--- NOTE | 2019-04-06 11:15 | NUR ---
THE PATIENT CAME TO THE [facility] WANTING HIS IV REMOVED, READY TO GO. THE MOTHER IS UPSET BECAUSE "LOVE LIED, HE IS NOT OK AND IS HOMELESS AND NEEDS TO STAY HERE FOR 72 HOURS TO BE ABLE TO MOVE INTO THE HALF WAY HOUSE MONDAY" SHE REQUESTED A COPY OF HIS LABS FOR THE "[facility] PL[facility] TO GO TO UNTIL MONDAY", A COPY OF THE PATIENT SUMMARY AND VISTS WAS PRINTED AND GIVEN TO THE PATIENT ALONG WITH THE DISCHARGE PAPERS. THE PATIENT HAD TOLD MYSELF, THE SERVICE PLUMBER WELL ZACK, THE MANAGER HEART FOR DR REVELES THAT HE DID NOT WANT TO "GO TO REHAB OR ANY FACILITY, I JUST WILL GO HOME. I JUST GOT OUT OF A PLACE AND THEY HAVE A GOOD PROGRAM, I WILL FOLLOW UP WITH THEM ON MY OWN" THIS WAS EXPLAINED TO THE MOTHER IN FRONT OF THE PATIENT AND SHE JUST KEPT INSISTING HE STAY, ASKING ME TO "TALK TO THE DOCTOR" WHICH IS DID DISCUSS THIS IN DETAIL WITH THE MANAGER HEART. [phone] THIS NURSE CALLED ([phone]) AND SPOKE TO ZACK UPDATING HER ON THE PATIENTS MOTHERS CONCERNS. THE PHONE NUMBER TO THE PATIENTS MOTHER WAS GIVEN TO THE MANAGER HEART WELL THE SPECIAL REQUEST TO CALL THE "[facility]" TO MAKE A REFERRAL.
--- NOTE | 2019-04-06 12:30 | NUR ---
PATIENTS DISCHARGE PAPERS ARE READY, HE REPORTS HIS WILL BE HERE BETWEEN 3-4 FROM [place] TO PICK HIM UP, SIGN BOARD ERECTOR NOTIFIED
--- NOTE | 2019-04-06 14:53 | NUR ---
THE PATIENT CALLED THE NURSE TO THE ROOM, STATING "I CANT GO HOME TODAY, I DONT HAVE GAS MONEY FOR MY TO COME GET ME" FROM [place]. THE ASSISTANT DEPARTMENT MANAGER,STEPHEN SPOKE WITH THE PATIENT. THE CHARGE NURSE AND GATHERING MACHINE FEEDER BOTH NOTIFIED. ASSISTANT DEPARTMENT MANAGER REPORTED TO ME, NAYA AHN AND GATHERING MACHINE FEEDER THAT THE PATIENT WOULD BE SPENDING ANOTHER NIGHT HERE, AND SHE HERSELF SPOKE TO THE SPOUSE AND SHE WILL BE ABLE TO COME FITNESS COORDINATOR THE PATIENT IN THE AM.
--- NOTE | 2019-04-06 14:59 | MORECARE ---
CASE MANAGEMENT DISCHARGE SUMMARY PATIENT: LOVE JONES UNIT: [id number] ADM DATE: 04/03/19 AGE: 63 : 51 SEX: M ROOM/BED: D.9684 AUTHOR: DENA SULLIVAN PHYSICIAN: REFERRING PHYSICIAN: NILA MONTAÑO MD DATE OF SERVICE: 04/06/19 Discharge Plan Patient Name: LOVE JONES Facility: [facility]:[place] : 1955 Planned Disposition: Home Anticipated Discharge Date: 04/05/19 Discharge Date: Expected LOS: 2 Initial Reviewer: [email or web address] Initial Review Date: 04/03/2019 Generated: 04/06/19 3:59 pm Comments DCP- Discharge Planning Updated by [email or web address]: Graciela Cristian on 04/06/19 1:[address] Patient Name: LOVE JONES Admission Status: ER Accout number: [id number] Admission Date: 04-03-2019 : 1955 Admission Diagnosis:ACUTE EMBOLISM AND THOMBOS UNSP DEEP VEINS OF L LOW EXT Attending: HOLLAND MONTAÑO Current LOS: 3 Anticipated DC Date: 04-05-2019 Planned Disposition: Home Primary Insurance: UNINSURED DISCOUNT PLAN Discharge Planning Comments: CM WAS CALLED TO PTS ROOM ABOUT HIS TRANSPORTATION ISSUES. HIS IS HAVING TO DRIVE FROM [place] AND WILL NOT BE ABLE TO MAKE IT UNTIL TOMORROW. I EXPLAINED TO HIM AND HER THAT IS VERY IMPORTANT THAT SHE ARRIVES TOMORROW. Mechanical Oxidizer: Graciela Cristian DCP- Discharge Planning Updated by [id number]: Saleem Becerril on 04/05/19 3:[address] Patient Name: LOVE JONES Encounter No: [id number] : 1955 Primary Insurance: UNINSURED DISCOUNT PLAN Anticipated DC Date: 04-05-2019 Planned Disposition: Home DCP follow-up note: CM RECEIVED ORDER FOR TRANSPORTATION. CM SPOKE TO CM SENIOR INTERIOR DESIGNER, DISCUSSED SITUATION. [employer] TRANSPORT PAID FOR BY CASE MANAGEMENT IS NOT FEASIBLE. CM SPOKE TO PT IN ROOM REGARDING DISCHARGE PLAN AND TRANSPORTATION. PT REPORTS HE HAS CALLED HIS AND DAUGHTER, THEY SHOULD BE ON THE WAY IN THE MORNING TO PICK HIM UP; PT REPORTS HIS CAR GETS [address] [place] AND THEY CAN COME PICK HIM UP AND GET BACK HOME ON ONE TANK OF GAS. PT HAS THE ELIQUIS ASSISTANCE CARDS AND DENIES FURTHER DISCHARGE NEEDS. PT'S SPOUSE TO PRODUCT SUPPORT ANALYST PT FOR DISCHARGE HOME TOMORROW, 04-06-19. Saleem Becerril CASE MANAGEMENT DCP- Discharge Planning Updated by [id number]: Saleem Becerril on 04/05/19 10:[address] Patient Name: LOVE JONES Encounter No: [id number] : 1955 Primary Insurance: UNINSURED DISCOUNT PLAN Anticipated DC Date: 04-05-2019 Planned Disposition: Home DCP follow-up note: CM REVIEWED CHART, PT STARTED ON ELIQUIS. CM MET WITH PT AND PROVIDED PT WITH ELIQUIS 30 DAY FREE PRESCRIPTION CARD AND $10 COPAY CARD. PT DENIES FURHTER DISCHARGE NEEDS, REPORTS PLAN FOR HIS TO PICK HIM UP AT DISCHARGE. CM TO CONTINUE TO FOLLOW AND ASSIST IF NEEDED. ANDREIA Hunt DCP- Discharge Planning Updated by [id number]: Saleem Becerril on 04/03/19 3:[address] Patient Name: LOVE JONES Admission Status: ER Accout number: [id number] Admission Date: 04-03-2019 : 1955 Admission Diagnosis: Attending: HOLLAND MONTAÑO Current LOS: 1 Anticipated DC Date: Planned Disposition: Home Primary Insurance: UNINSURED DISCOUNT PLAN Discharge Planning Comments: CM RECEIVED ORDER FOR PT CANNOT AFFORD MEDICATIONS. CM MET WITH PT IN ROOM TO DISCUSS DISCHARGE PLANNING AND NEEDS. PT REPORTS LIVING AT HOME INDEPENDENTLY WITH HIS . PT REPORTS HAVING BEEN RELEASED FROM NURSING HOME ON January AFTER 24 MONTHS DUE TO "SLINGING DRUGS". PT HAS NO MEDICAL EQUIPMENT AND NO OUTSIDE SERVICES ASSISTING IN THE HOME. CM DISCUSSED AVAILABILITY OF HOME HEALTH, REHAB SERVICES AND MEDICAL EQUIPMENT. PT DENIES DISCHARGE NEEDS, REPORTS HIS WILL PICK HIM UP FOR DISCHARGE HOME. CM DISCUSSED INABILITY TO AFFORD DRUGS. PT STATES HE CAN AFFORD HIS MEDICATIONS. 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 PT RECEIVED HIS CHECK AFTER RELEASE FROM NURSING HOME AND OPENED UP A BANK ACCOUNT. PT HAD A PREVIOUS ACCOUNT THAT WAS OVERDRAFTED AND THE BACK HELD HIS MONEY. THEY HAVE SINCE RESOLVED THE ISSUE AND HAVE MAILED HIM HIS CHECK BUT HE WILL HAVE TO OPEN ANOTHER BANK ACCOUNT. PT REPORTS HE IS RECEIVING HIS NEXT DISABILITY CHECK NEXT WEEK. PT REPORTS MOST OF HIS MEDICATIONS ARE $4 AND METFORMIN IS THE MOST EXPENSIVE AT $60. PT REPORTS HAVING MEDICARE AND INSURANCE TO ASSIST IN GETTING HIS MEDICATIONS FROM HIS PRIMARY CARE DOCTOR, DR. FARIAS, IN [place], [place]. PT REPORTS BEING ON PARO[place] AND HE HAS NOT CONTACTED HIS POTATO GRADER TO LET HIM KNOW THAT HE IS IN THE HOSPITAL; PT IS NOT SURE IF HE HAS MISSED HIS TELEPHONE APPPOINTMENT TO CALL IN AND DOES NOT KNOW IF HE HAS RESTRICTIONS ON OUT OF STATE TRAVEL. CM ADVISED PT TO CONTACT HIS POTATO GRADER TODAY AND TO MAKE SURE HE SHOWS HIS HOSPITAL DISCHARGE PAPERS TO HIS POTATO GRADER AFTER HOSPTIAL DISCHARGE. CM DISCUSSED DRUG USE, PT DENIES ADDICTION TO DRUGS AND DENIES NEED FOR RESOURCE INFORMATION. CM ENCOURAGED PT TO INFORM HIS POTATO GRADER OF ANY AND ALL USE OF ILLICIT DRUGS UPON HIS NEXT CALL TO [place] OFFICE AND TO REQUEST ASSISTANCE OF POTATO GRADER FOR RECOVERY SUPPORT PROGRAMS IN PT'S HOME AREA, IF NEEDED. PT REPORTS UNDERSTANDING, DENIES DISCHARGE NEEDS. PT PLANS TO DISCHARGE HOME WITH , REPORTS ABILITY TO AFFORD MEDICATIONS, REPORTS HAVING HEALTH AND PRESCRIPTION DRUG COVERAGES. CM TO FOLLOW AND ASSIST IF NEEDED. Mechanical Oxidizer: Saleem Becerril DCA - Discharge Planning Initial Assessment Updated by [id number]: Saleem Becerril on 04/03/19 4:14 pm * Is the patient Alert and Oriented? Yes * How many steps to enter\\exit or inside your home? * PCP DR. FARIAS, [facility], [place] * Pharmacy [facility], [place], [place] * Preadmission Environment Home with Family * ADLs Independent * Equipment None * Other Equipment NO MEDICAL EQUIPMENT PROVIDER PREFERENCE * List name and contact numbers for known caregivers / representatives who currently or will assist patient after discharge: GRACIELA JONES, SPOUSE, * Verbal permission to speak to the caregivers and representatives has been obtained from the patient. N/A * Community resources currently utilized None * Please name any agencies selected above. NONE * Additional services required to return to the preadmission environment? No * Can the patient safely return to the preadmission environment? Yes * Has this patient been hospitalized within the prior 30 days at any hospital? No Last DP export: 04/05/19 4:04 p Patient Name: LOVE JONES Page [id number] at 1459 All edits/amendments must be made on the electronic document DICTATION DATE: 04/06/191458 SALES ATTENDANT: KAYLA 04/06/191458 RPT#: [id number] DC DATE: STATUS: ADM IN [facility] [address] [place] [address] END OF REPORT
--- NOTE | 2019-04-08 10:03 | MORECARE ---
CASE MANAGEMENT DISCHARGE SUMMARY PATIENT: LOVE JONES UNIT: [id number] ADM DATE: 04/03/19 AGE: 63 : 51 SEX: M ROOM/BED: D.3314 AUTHOR: DENA SULLIVAN PHYSICIAN: REFERRING PHYSICIAN: NILA MONTAÑO MD DATE OF SERVICE: 04/08/19 Discharge Plan Patient Name: LOVE JONES Facility: [facility]:[place] : 1955 Planned Disposition: Home Anticipated Discharge Date: 04/06/19 Discharge Date: 04/06/2019 Expected LOS: 3 Initial Reviewer: [id number] Initial Review Date: 04/03/2019 Generated: 04/08/19 11:03 am Comments DCP- Discharge Planning Updated by [id number]: Graciela Foster on 04/06/19 1:[address] Patient Name: LOVE JONES Admission Status: ER Accout number: [id number] Admission Date: 04-03-2019 : 1955 Admission Diagnosis:ACUTE EMBOLISM AND THOMBOS UNSP DEEP VEINS OF L LOW EXT Attending: HOLLAND MONTAÑO Current LOS: 3 Anticipated DC Date: 04-05-2019 Planned Disposition: Home Primary Insurance: UNINSURED DISCOUNT PLAN Discharge Planning Comments: CM WAS CALLED TO PTS ROOM ABOUT HIS TRANSPORTATION ISSUES. HIS IS HAVING TO DRIVE FROM [place] AND WILL NOT BE ABLE TO MAKE IT UNTIL TOMORROW. I EXPLAINED TO HIM AND HER THAT IS VERY IMPORTANT THAT SHE ARRIVES TOMORROW. It Infrastructure Manager: Graciela Foster DCP- Discharge Planning Updated by [id number]: Saleem Becerril on 04/05/19 3:[address] Patient Name: LOVE JONES Encounter No: [id number] : 1955 Primary Insurance: UNINSURED DISCOUNT PLAN Anticipated DC Date: 04-05-2019 Planned Disposition: Home DCP follow-up note: CM RECEIVED ORDER FOR TRANSPORTATION. CM SPOKE TO CM SUPERVISOR PIPELINES, DISCUSSED SITUATION. TAXI TRANSPORT PAID FOR BY CASE MANAGEMENT IS NOT FEASIBLE. CM SPOKE TO PT IN ROOM REGARDING DISCHARGE PLAN AND TRANSPORTATION. PT REPORTS HE HAS CALLED HIS AND DAUGHTER, THEY SHOULD BE ON THE WAY IN THE MORNING TO PICK HIM UP; PT REPORTS HIS CAR GETS 26 [address] [place] AND THEY CAN COME PICK HIM UP AND GET BACK HOME ON ONE TANK OF GAS. PT HAS THE ELIQUIS ASSISTANCE CARDS AND DENIES FURTHER DISCHARGE NEEDS. PT'S SPOUSE TO WELDING TECHNICIAN PT FOR DISCHARGE HOME TOMORROW, 04-06-19. Saleem Becerril, CASE MANAGEMENT DCP- Discharge Planning Updated by [id number]: Saleem Becerril on 04/05/19 10:[address] Patient Name: LOVE JONES Encounter No: [id number] : 1955 Primary Insurance: UNINSURED DISCOUNT PLAN Anticipated DC Date: 04-05-2019 Planned Disposition: Home DCP follow-up note: CM REVIEWED CHART, PT STARTED ON ELIQUIS. CM MET WITH PT AND PROVIDED PT WITH ELIQUIS 30 DAY FREE PRESCRIPTION CARD AND $10 COPAY CARD. PT DENIES FURHTER DISCHARGE NEEDS, REPORTS PLAN FOR HIS TO PICK HIM UP AT DISCHARGE. CM TO CONTINUE TO FOLLOW AND ASSIST IF NEEDED. ANDREIA Hunt MANAGEMENT DCP- Discharge Planning Updated by [email or web address]: Saleem Becerril on 04/03/19 3:[address] Patient Name: LOVE JONES Admission Status: ER Accout number: [id number] Admission Date: 04-03-2019 : 1955 Admission Diagnosis: Attending: HOLLAND MONTAÑO Current LOS: 1 Anticipated DC Date: Planned Disposition: Home Primary Insurance: UNINSURED DISCOUNT PLAN Discharge Planning Comments: CM RECEIVED ORDER FOR PT CANNOT AFFORD MEDICATIONS. CM MET WITH PT IN ROOM TO DISCUSS DISCHARGE PLANNING AND NEEDS. PT REPORTS LIVING AT HOME INDEPENDENTLY WITH HIS . PT REPORTS HAVING BEEN RELEASED FROM ALF ON January AFTER 24 MONTHS DUE TO "SLINGING DRUGS". PT HAS NO MEDICAL EQUIPMENT AND NO OUTSIDE SERVICES ASSISTING IN THE HOME. CM DISCUSSED AVAILABILITY OF HOME HEALTH, REHAB SERVICES AND MEDICAL EQUIPMENT. PT DENIES DISCHARGE NEEDS, REPORTS HIS WILL PICK HIM UP FOR DISCHARGE HOME. CM DISCUSSED INABILITY TO AFFORD DRUGS. PT STATES HE CAN AFFORD HIS MEDICATIONS. 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 PT RECEIVED HIS CHECK AFTER RELEASE FROM ALF AND OPENED UP A BANK ACCOUNT. PT HAD A PREVIOUS ACCOUNT THAT WAS OVERDRAFTED AND THE BACK HELD HIS MONEY. THEY HAVE SINCE RESOLVED THE ISSUE AND HAVE MAILED HIM HIS CHECK BUT HE WILL HAVE TO OPEN ANOTHER BANK ACCOUNT. PT REPORTS HE IS RECEIVING HIS NEXT DISABILITY CHECK NEXT WEEK. PT REPORTS MOST OF HIS MEDICATIONS ARE $4 AND METFORMIN IS THE MOST EXPENSIVE AT $60. PT REPORTS HAVING MEDICARE AND INSURANCE TO ASSIST IN GETTING HIS MEDICATIONS FROM HIS PRIMARY CARE DOCTOR, DR. FARIAS, IN [place], [place]. PT REPORTS BEING ON [place] AND HE HAS NOT CONTACTED HIS OPERATIONS MANAGER/COORDINATOR TO LET HIM KNOW THAT HE IS IN THE HOSPITAL; PT IS NOT SURE IF HE HAS MISSED HIS TELEPHONE APPPOINTMENT TO CALL IN AND DOES NOT KNOW IF HE HAS RESTRICTIONS ON OUT OF STATE TRAVEL. CM ADVISED PT TO CONTACT HIS OPERATIONS MANAGER/COORDINATOR TODAY AND TO MAKE SURE HE SHOWS HIS HOSPITAL DISCHARGE PAPERS TO HIS OPERATIONS MANAGER/COORDINATOR AFTER HOSPTIAL DISCHARGE. CM DISCUSSED DRUG USE, PT DENIES ADDICTION TO DRUGS AND DENIES NEED FOR RESOURCE INFORMATION. CM ENCOURAGED PT TO INFORM HIS OPERATIONS MANAGER/COORDINATOR OF ANY AND ALL USE OF ILLICIT DRUGS UPON HIS NEXT CALL TO [place] OFFICE AND TO REQUEST ASSISTANCE OF OPERATIONS MANAGER/COORDINATOR FOR RECOVERY SUPPORT PROGRAMS IN PT'S HOME AREA, IF NEEDED. PT REPORTS UNDERSTANDING, DENIES DISCHARGE NEEDS. PT PLANS TO DISCHARGE HOME WITH , REPORTS ABILITY TO AFFORD MEDICATIONS, REPORTS HAVING HEALTH AND PRESCRIPTION DRUG COVERAGES. CM TO FOLLOW AND ASSIST IF NEEDED. It Infrastructure Manager: Saleem Becerril DCA - Discharge Planning Initial Assessment Updated by [id number]: Saleem Becerril on 04/03/19 4:14 pm * Is the patient Alert and Oriented? Yes * How many steps to enter\\exit or inside your home? * PCP DR. FARIAS, [place], [place] * Pharmacy [facility], [place], [place] * Preadmission Environment Home with Family * ADLs Independent * Equipment None * Other Equipment NO MEDICAL EQUIPMENT PROVIDER PREFERENCE * List name and contact numbers for known caregivers / representatives who currently or will assist patient after discharge: GRACIELA JONES, SPOUSE, * Verbal permission to speak to the caregivers and representatives has been obtained from the patient. N/A * Community resources currently utilized None * Please name any agencies selected above. NONE * Additional services required to return to the preadmission environment? No * Can the patient safely return to the preadmission environment? Yes * Has this patient been hospitalized within the prior 30 days at any hospital? No Last DP export: 04/06/19 1:59 p Patient Name: LOVE JONES Page 85463 at 1003 All edits/amendments must be made on the electronic document DICTATION DATE: 04/08/19 1002 RAILROAD CAR PAINTER: KAYLA 04/08/19 1002 RPT#: [id number] DC DATE:04/06/19 STATUS: DIS IN [facility] [address] [facility] [place] [address] END OF REPORT
== END 2019-04-06 18:52 | disposition home or self-care (01) | DRG 299 ==
LOC: D.ER 23:39 → D.M2 04-03 01:58
PROVIDERS: Emergency Medicine; Family Medicine; ADMIT Emergency Medicine; ATTEND Emergency Medicine
DX: I82.402 Acute embolism and thrombosis of unspecified deep veins of left lower extremity (principal); I26.99 Other pulmonary embolism without acute cor pulmonale; I10 Essential (primary) hypertension; E11.65 Type 2 diabetes mellitus with hyperglycemia; E11.40 Type 2 diabetes mellitus with diabetic neuropathy, unspecified; E11.51 Type 2 diabetes mellitus with diabetic peripheral angiopathy without gangrene; N40.0 Benign prostatic hyperplasia without lower urinary tract symptoms; I25.10 Atherosclerotic heart disease of native coronary artery without angina pectoris; F12.90 Cannabis use, unspecified, uncomplicated; F15.90 Other stimulant use, unspecified, uncomplicated